=== PATIENT | female | born 1995 | race Two or more races ===

== ENCOUNTER → 2024-08-02 | Outpatient (CLI) | payer MEDICAID, SELFPAY ==
--- NOTE | 2024-08-02 16:00 | XR_ITS ---
Examination: Shoulder,right, 3 views Technique: Shoulder AP internal rotation, AP external rotation, Y view shoulder, 3 views Exam date and time :August 02, 2024 1628 hours INDICATIONS: Patient fell today with into the shoulder, shoulder pain. FINDINGS: No shoulder fracture or dislocation 3 mm AC joint separation No foreign body IMPRESSION: 3 mm AC joint separation
== END | disposition home or self-care (01) ==
PROVIDERS: PCP Physician Assistant; Referring Provider Physician Assistant; Visit Provider Physician Assistant
DX: S43.101A Unspecified dislocation of right acromioclavicular joint, initial encounter (principal); W19.XXXA Unspecified fall, initial encounter
CPT/HCPCS: 73030

== ENCOUNTER 2024-09-22 11:00 | Outpatient (RCR) | payer MEDICAID, SELFPAY ==
--- NOTE | 2024-09-15 15:16 | PTNOTE_ITS ---
PT OP Initial Eval Patient Information Outpatient Physical Therapy Treatment Date: 09/15/24 Visit Reasons: Right shoulder separation Medical Diagnosis: Right AC Separation Treatment Dx #1: Right Shoulder Mobility Deficits Treatment Dx #2: Right Shoulder Pain Start of Care: 09/15/24 Date of Onset: 8 weeks ago Smoking Status Smoking Status: Current some day smoker Cessation Counseling Provided: ALEX was advised that quitting smoking is the single most important factor to protect the health of themselves and their family. Discussed the benefits of quitting smoking with patient. Encouraged patient to quit smoking and provided Cessation assistance materials and resources. Tobacco Use: Vapor Cigarette Years smoked: 5 Are you interested in quitting?: No Would you like additional Smoking Cessation Counseling?: No Initial Assessment Subjective: Pt is a 28 y/o female reports of right AC separation (3 mm) after she fell on the shoulder while cleaning ~ 8 weeks ago. Pt still has pain (6/10) with arm movements. Pt has limitation with overhead motions, lifting, chores, self care, cooking, cleaning, pole dancing, and recreational activities. Objective: Right Shoulder AROM: all motions are WFL with end range pain in all plane Right Shoulder MMTs: grossly 3+/5 Right Scapula MMTs: grossly 3+/5 Special Test (+) AC Joint compression test Assessment: Pt demonstrate right shoulder pain with weakness leading to difficulty with ADLs. Pt will benefit from physical therapy to increase ROM, strength, and work on stability. 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 Transport Conductor Goals 1) Increase right shoulder AROM WNL in 6 wks to be able to perform overhead motions 2) Decrease shoulder pain to 2/10 in 6 wks to be able to perform chores 3) Increase shoulder MMTs grossly to 4/5 in 6 wks to be able to perform recreational activities 4) Increase scapula MMTs grossly to 4-/5 in 6 wks to be able to perform lifting activities 5) Indep with HEP Treatment Plan 1) Manual Therapy 2) Therapeutic Activities 3) Therapeutic Exercises 4) Modalities (ice, heat) Frequency and Duration: 2 x wk for 6 wks Certification Dates: 09/15/24 to 12/13/24 Procedure Charges OP PT Eval Mod Complex 30 minutes: Yes
--- NOTE | 2024-09-22 12:57 | PT.ODAYNRPT ---
PT Outpatient Daily Note OP Daily Note Outpatient Physical Therapy Treatment Date: 09/22/24 Visit Reasons: Right shoulder separation Subjective: Pt's shoulder is about the same. No change in overall pain Objective: Please see flow chart for list of ther ex performed Assessment: tolerate exercises with minimal pain Plan: Continue with PT Length of Time (minutes) of Treatment: 30 Minutes Procedure Charges Therapeutic Exercise 30 minutes: Yes
== END 2024-09-22 23:59 | disposition home or self-care (01) ==
LOC: CPTX 11:00
PROVIDERS: PCP Physician Assistant; Referring Provider Orthopaedic Surgery; Visit Provider Orthopaedic Surgery
DX: M25.511 Pain in right shoulder (principal); R53.1 Weakness; S43.101D Unspecified dislocation of right acromioclavicular joint, subsequent encounter; W19.XXXD Unspecified fall, subsequent encounter; Z71.6 Tobacco abuse counseling; F17.290 Nicotine dependence, other tobacco product, uncomplicated
CPT/HCPCS: 97110; 97162

== ENCOUNTER 2024-10-04 13:30 | Outpatient (RCR) | payer MEDICAID, SELFPAY ==
--- NOTE | 2024-10-02 14:29 | PT.ODAYNRPT ---
PT Outpatient Daily Note OP Daily Note Outpatient Physical Therapy Treatment Date: 10/02/24 Visit Reasons: RT shoulder seperation Subjective: Pt's shoulder feels worse. Pt's been lifting her son more often lately. Objective: Please see flow chart for list of ther ex performed Assessment: added more YTB to exercise program with good tolerance Plan: Conitnue with PT Length of Time (minutes) of Treatment: 30 Minutes Procedure Charges Therapeutic Exercise 30 minutes: Yes
--- NOTE | 2024-10-04 14:07 | PT.ODAYNRPT ---
PT Outpatient Daily Note OP Daily Note Outpatient Physical Therapy Treatment Date: 10/04/24 Visit Reasons: RT shoulder seperation Subjective: Pt's shoulder feels worse. Pt has a follow up with surgeon this evening. Pt will consult with surgeon regarding surgical intervention Objective: Please see flow chart for list of ther ex performed Assessment: cues to correct body blade to decrease shoulder movement. Post ice helped with pain and soreness Plan: Continue with PT Length of Time (minutes) of Treatment: 30 Minutes Procedure Charges Therapeutic Exercise 30 minutes: Yes
== END 2024-10-23 23:59 | disposition home or self-care (01) ==
LOC: CPTX 13:30
PROVIDERS: PCP Orthopaedic Surgery; Referring Provider Orthopaedic Surgery; Visit Provider Orthopaedic Surgery
DX: M25.511 Pain in right shoulder (principal); R53.1 Weakness; S43.101D Unspecified dislocation of right acromioclavicular joint, subsequent encounter; W19.XXXD Unspecified fall, subsequent encounter
CPT/HCPCS: 97110

== ENCOUNTER → 2025-01-10 | Outpatient (CLI) | payer MEDICAID, SELFPAY ==
--- NOTE | 2025-01-10 07:30 | XR_ITS ---
MRI shoulder, right, without contrast. Date and time: January 10, 2025 0755 hours INDICATIONS: Patient fell August 01, 2024 with into the shoulder, shoulder pain Technique: Multiple axial, sagittal and coronal sections of the shoulder have been obtained. Siemens high-resolution 1.5 Irma MRI scanner is utilized. Axial fat-suppressed sections, TR 2350, TE 18 T2-weighted coronal fat-saturated images, TR 3500, TE 7100 T1-weighted coronal images, TR 500, TE 15 T2-weighted sagittal fat-saturated images, TR 3500, TE 57 T1-weighted sagittal sections, TR 504, TE 13. Findings: Supraspinatus tendon insertion is intact. Infraspinatus tendon insertion is intact. Subscapularis insertion is intact. Subscapularis bursa is not seen. Long head of the biceps is in the bicipital groove. No definite tear of the biceps superior labral anchor is seen. Retraction of the musculotendinous junction of the rotator cuff is not seen . Tendinosis pattern is mild. Distance between the acromium and humeral head is 5.2 mm Atrophy of the supraspinatus muscle is mild . Atrophy of the infraspinatus muscle is not seen. Sagittal sections demonstrate a horizontal acromion. Acromioclavicular joint demonstrates no significant arthritic change. Osacromiale is not identified. Fraying and irregularity anterior superior labral margin. Bony glenoid fossa on the sagittal sections does not demonstrate osseous defect. Occult fracture or area of avascular necrosis is not seen. Acromioclavicular joint separation is not visible. Defect in the posterolateral margin of the humeral head is not seen Impression: Rotator cuff intact Fraying and irregularity anterior superior labral margins
== END | disposition home or self-care (01) ==
LOC: SMRI 07:21
PROVIDERS: PCP Physician Assistant; Referring Provider Orthopaedic Surgery; Visit Provider Orthopaedic Surgery
DX: S49.91XA Unspecified injury of right shoulder and upper arm, initial encounter (principal); W19.XXXA Unspecified fall, initial encounter; M25.811 Other specified joint disorders, right shoulder
CPT/HCPCS: 73221

== ENCOUNTER → 2025-04-20 | Outpatient (CLI) | payer MEDICAID, SELFPAY ==
--- NOTE | 2025-04-20 11:30 | XR_ITS ---
Examination: Retroperitoneal ultrasound, complete Technique: Multiple high resolution grayscale images of the retroperitoneum obtained, including kidneys and bladder. Exam date and time:April 20, 2025, 1214 hours INDICATIONS: Urinary tract infections 4 weeks FINDINGS: Right kidney 12.0 cm cortex 1.8 cm Left kidney 14.8 cm cortex 0.9 cm Mild left hydronephrosis Lower pole cyst with internal echoes, 12 x 8.8 x 7.3 cm No bladder mass or bladder calculi Bladder prevoid volume 278 cc IMPRESSION: Bilateral renal cortical thinning Mild left hydronephrosis Complex cyst lower pole left kidney, consider CT scan abdomen kidneys pre and post contrast follow-up
== END | disposition home or self-care (01) ==
PROVIDERS: PCP Physician Assistant; Referring Provider Physician Assistant; Visit Provider Physician Assistant
DX: N13.30 Unspecified hydronephrosis (principal); N28.1 Cyst of kidney, acquired
CPT/HCPCS: 76770

== ENCOUNTER 2025-05-21 09:57 | Outpatient (RCR) | payer MEDICAID, SELFPAY ==
--- NOTE | 2025-05-21 10:43 | PT.OIERPT ---
PT OP Initial Eval Patient Information Outpatient Physical Therapy Treatment Date: 05/21/25 Visit Reasons: right shoulder pain Medical Diagnosis: M75.2 M19.011 Treatment Dx #1: R shoulder pain Start of Care: 05/21/25 Date of Onset: 10 months ago Smoking Status Smoking Status: Current some day smoker Cessation Counseling Provided: ALEX was advised that quitting smoking is the single most important factor to protect the health of themselves and their family. Discussed the benefits of quitting smoking with patient. Encouraged patient to quit smoking and provided Cessation assistance materials and resources. Tobacco Use: Vapor Cigarette Years smoked: 5 Are you interested in quitting?: No Would you like additional Smoking Cessation Counseling?: No Initial Assessment Subjective: Pt is 29 yr old female who reports R shoulder pain since falling in the tub onto R side and hearing a pop and cracks like glow sticks breaking. Since then she has had pain that limits all activities and strength of R UE. 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 FF: 130 deg ? Abd: 140 deg ? ER: 85 deg with difficulty and shaking ? HBB: to R of L5 with pain ? Strength: 3+/5 in all planes PROM: end-range pain with capsular tightness Bonds Gomez: positive Full can: positive Hay's: positive Empty can: less pain than full can but painful Assessment: Pt presents with positive supraspinatus pain provocation and labral testing and R shoulder weakness into all planes consistent with A/C joint separation and possible RC and labral involvement. Pt may benefit from skilled therapy and has fair rehab potential. 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 Electrotyper Apprentice Goals 1. Ind with HEP ? 2. Improved AROM of R shoulder to at least 155 deg FF, and 90 deg ? ER ? 3. Improved strength of R shoulder to 4/5 in all planes ? 4. Pt will reach OH x10 with <=4/10 pain Treatment Plan ? 1. Manual therapy ? 2. Therex ? 3. Modalities as indicated, moist heat, ice, estim Frequency and Duration: 2x a week for 3 weeks plus the evaluation and reassess. If progressing with goals we will need provider's signature to continue to 12 visits. Certification Dates: 05/21/25 to 08/19/25 Procedure Charges OP PT Eval Mod Complex 30 minutes: Yes
== END 2025-05-25 23:59 | disposition home or self-care (01) ==
LOC: CPTX 09:57
PROVIDERS: PCP Physician Assistant; Referring Provider Physician Assistant; Visit Provider Physician Assistant
DX: M25.511 Pain in right shoulder (principal); R53.1 Weakness; M19.011 Primary osteoarthritis, right shoulder; Z71.6 Tobacco abuse counseling; F17.290 Nicotine dependence, other tobacco product, uncomplicated
CPT/HCPCS: 97162

== ENCOUNTER 2025-06-14 10:00 | Outpatient (RCR) | payer MEDICAID, SELFPAY ==
--- NOTE | 2025-05-30 10:56 | PT.ODAYNRPT ---
PT Outpatient Daily Note OP Daily Note Outpatient Physical Therapy Treatment Date: 05/30/25 Visit Reasons: RIGHT SHOULDR PAIN Subjective: Same as time of evaluation Objective: See F/S for therex MHP R shoulder x5' Assessment: Moderate tissue irritability into Abduction and ER with AAROM therex Plan: Continue per POC Length of Time (minutes) of Treatment: 30 Minutes Procedure Charges Therapeutic Exercise 30 minutes: Yes
--- NOTE | 2025-06-04 11:31 | PT.ODAYNRPT ---
PT Outpatient Daily Note OP Daily Note Outpatient Physical Therapy Treatment Date: 06/04/25 Visit Reasons: RIGHT SHOULDR PAIN Subjective: Same as last visit, continued R shoulder pain Objective: See F/S for therex Assessment: Moderate tissue irritability into Abduction and ER with AAROM therex consistent with labral irritation Plan: Continue per POC Length of Time (minutes) of Treatment: 30 Minutes Procedure Charges Therapeutic Exercise 30 minutes: Yes
--- NOTE | 2025-06-12 10:34 | PT.ODAYNRPT ---
PT Outpatient Daily Note OP Daily Note Outpatient Physical Therapy Treatment Date: 06/12/25 Visit Reasons: RIGHT SHOULDR PAIN Subjective: Pt reports R shoulder continues to click and pop, notices it is happening more frequently. Objective: Please see flow sheet for ther ex list. Assessment: Pt instructed on AAROM interventions within tolerable ROM. Plan: Continue with POC. Length of Time (minutes) of Treatment: 30 Minutes Procedure Charges Therapeutic Exercise 30 minutes: Yes
--- NOTE | 2025-06-14 11:03 | PT.ODS1RPT ---
PT OP Progress/Discharge Note Date of Service: 06/14/25 Progress Note/DC Note Progress Note/Discharge Note: DC Note Patient Information Visit Reasons: RIGHT SHOULDR PAIN Service Continue Service or Discharge: Discharge Discharge Date: 06/14/25 Status Subjective: Pt reports recent onset of R shoulder popping and continued pain unchanged since starting therapy Objective: R shoulder ArOM: FF: 105 deg Abd: 90 deg with pain radiating from subacromial space down brachium ER: 90 deg Strength: 3+/5 limited by pain Assessment: Pt has attended the eval and 4 Rx sessions with poor progress with therapy goals due to continued R shoulder pain and new onset of popping. Pt is not benefitting from therapy interventions or making progress with goals. PT recommends further diagnostic imaging of R shoulder and orthopedic evaluation. Plan: D/C with HEP Procedure Charges Therapeutic Exercise 30 minutes: Yes
== END 2025-06-24 23:59 | disposition home or self-care (01) ==
LOC: CPTX 10:00
PROVIDERS: PCP Physician Assistant; Referring Provider Physician Assistant; Visit Provider Physician Assistant
DX: M25.511 Pain in right shoulder (principal); M19.011 Primary osteoarthritis, right shoulder
CPT/HCPCS: 97110